=== PATIENT | male | born 1980 | race Caucasian/White ===

== ENCOUNTER 2018-01-16 15:20 | Emergency (ER) | payer SELFPAY ==
--- NOTE | 2018-01-16 15:24 | EDPHY ---
H & P Time Seen by Provider: 01/16/18 15:24 HPI/ROS: CHIEF COMPLAINT: Left leg injury HISTORY OF PRESENT ILLNESS: The patient presents to the ED with complaints of acute left knee and foot pain following injury that occurred last night. The patient reportedly fell while walking on stairs. He did not strike his head or lose consciousness. He complains of pain primarily on the mid left foot. He has associated soft tissue swelling. The patient denies any ankle pain. He has mild pain along the medial aspect of his left knee. The patient denies any acute numbness or weakness and denies any additional complaints. REVIEW OF SYSTEMS: A comprehensive 10 point review of systems is otherwise negative aside from elements mentioned in the history of present illness. Source: Patient Exam Limitations: No limitations - Medical/Surgical History Hx Asthma: No Hx Chronic Respiratory Disease: No Hx Diabetes: No Hx Cardiac Disease: No Hx Renal Disease: No Hx Cirrhosis: No Hx Alcoholism: No Hx HIV/AIDS: No Hx Splenectomy or Spleen Trauma: No Other PMH: denies - Social History Smoking Status: Current some day smoker - Physical Exam Exam: General Appearance: Alert, no distress Eyes: Pupils equal and round no pallor or injection ENT, Mouth: Mucous membranes moist Respiratory: There are no retractions, lungs are clear to auscultation Cardiovascular: Regular rate and rhythm Gastrointestinal: Abdomen is soft and nontender, no masses, bowel sounds normal Neurological: 5/5 strength all 4 extremities Skin: Warm and dry, no rashes Musculoskeletal: Tenderness to palpation along the medial aspect of the left knee, no joint effusion, no patellar tenderness. Tenderness to palpation along the dorsal aspect of the left foot. Extremities: symmetrical, full range of motion Constitutional: Initial Vital Signs Temperature (C) 36.4 C 01/16/18 15:23 Heart Rate 82 01/16/18 15:23 Respiratory Rate 18 01/16/18 15:23 Blood Pressure 141/86 H 01/16/18 15:23 O2 Sat (%) 94 01/16/18 15:23 O2 Delivery Mode Room Air Allergies/Adverse Reactions: No Known Allergies Allergy (Verified 01/16/18 15:28) Medical Decision Making - Diagnostics Imaging Results: Imaging Impressions Foot X-Ray 01/16/18 15:29 Impression: Negative for fracture. ED Course/Re-evaluation: The patient presents the ED for evaluation of foot pain and swelling fall. I see no obvious fracture on his x-ray. The patient will be given a Sewell boot. He is advised to follow up with our on-call orthopedic surgeon for any symptoms that persists past 5-7 days as this may be the sign of an injury not noted on the x-ray today. The patient will be instructed in conservative treatment measures. Differential Diagnosis: Differential diagnosis considered includes fracture, sprain, dislocation Departure - Departure Disposition: Home, Routine, Self-Care Clinical Impression: Strain of left foot Condition: Good Instructions: Foot Sprain (ED) Additional Instructions: 1. Take Ibuprofen or Motrin 600 mg by mouth three times a day. 2. Ice as directed 3. Sewell boot for comfort 4. Please follow up with the orthopedic surgeon you have been referred to for any pain which persists past 5-7 days as this may be the sign of an injury not noted on the x-ray today. Referrals: Koffi Cevallos MD [Medical Doctor] - As per Instructions
[2018-01-16 15:28] VITALS: BP 141/86
== END 2018-01-16 16:04 | disposition home or self-care (01) ==
DX: S96.912A Strain of unspecified muscle and tendon at ankle and foot level, left foot, initial encounter (principal); F17.200 Nicotine dependence, unspecified, uncomplicated; W10.9XXA Fall (on) (from) unspecified stairs and steps, initial encounter; Y99.8 Other external cause status; Y93.01 Activity, walking, marching and hiking